=== PATIENT | female | born 1960 | race Caucasian/White ===

== ENCOUNTER → 2017-05-03 18:08 | Outpatient (CLI) | payer MEDICARE, MEDICAID ==
[~2017-05-03 18:08] MED LIST: CARAFATE1 G PO; OMEPRAZOLE40 MG PO; PROLIA INJ 660 MG/M1 IJ; TRAMADOL HCL E100 M1 PO
[2017-05-03 19:04] LABS: BASOPHILS 0.4 % (0-2); EOSINOPHILS 5.8 % (0-7); HEMATOCRIT 41.1 % (36.0-48.0); HEMOGLOBIN 13.5 g/dL (12-16); IMMATURE GRANULOCYTES 0.2 % (0-5); LYMPHOCYTES 24.4 % (15-50); MCH 30.7 pg (26.0-34.0); MCHC 32.8 g/dL (31.0-37.0); MCV 93.4 fL (80.0-100.0); MEAN PLATELET VOLUME 10.1 fL (7.4-10.4); MONOCYTES 10.8 % (2-11); NEUTROPHILS 58.4 % (40-80); PLATELET COUNT 242 10x3/uL (130-400); RDW 13.4 % (11.5-14.5)
[2017-05-03 19:18] LABS: ALBUMIN 3.5 g/dL (3.4-5.0); ALKALINE PHOSPHATASE 106 U/L (46-116); ALT (SGPT) 37 U/L (10-68); BILIRUBIN - TOTAL 0.16 mg/dL (0.2-1.3); CALC OSMOLALITY 282 mosm/kg (275-300); CALCIUM 8.7 mg/dL (8.5-10.1); CARBON DIOXIDE 30.8 mmol/L (21.0-32.0); CHLORIDE - SERUM 105 mmol/L (98-107); CREATININE - SERUM 0.8 mg/dL (0.6-1.3); GLUCOSE 73 mg/dL (74-106); POTASSIUM - SERUM 4.4 mmol/L (3.5-5.1); PROTEIN - SERUM 6.6 g/dL (6.4-8.2); SODIUM 143 mmol/L (136-145); UREA NITROGEN 9 mg/dL (7-18); eGFR NON AFRICAN AMERICAN 79 mL/min (90-120)
[2017-05-10 07:23] VITALS: BMI 16.8
== END | disposition home or self-care (01) ==
LOC: D.LABREF 18:08
PROVIDERS: Student in an Organized Health Care Education/Training Program
DX: A31.0 Pulmonary mycobacterial infection (principal); Z79.2 Long term (current) use of antibiotics

== ENCOUNTER 2017-05-10 06:49 | Day surgery (SDC) | payer MEDICARE, MEDICAID ==
[~2017-05-10] VITALS: Ht 167.6 cm; Wt 47.3 kg
--- NOTE | ~2017-05-10 | OP ---
PATIENT NAME: CARLIE BERRY MEDICAL RECORD: [id number] :64 LOCATION:D.[facility] ADMISSION DATE: SURGEON: MAIRA PIÑA MD DATE OF OPERATION: 05/10/2017 PROCEDURE: EGD with balloon dilatation EGD with biopsy. AUTOMOBILE CLUB TRAVEL COUNSELOR: Maira Piña MD. SCOPE: The scope was Olympus video gastroscope and a CRE Microvasive balloon from 45-54 Kosovan. INDICATION FOR THE PROCEDURE: The patient has a history of esophageal cancer status post radiation, chemotherapy and surgery. She had an 5 Butch-Kamran procedure with the gastric pull-through. She is presenting today with complaint of increasing gastroesophageal reflux disease as well as dysphagia. She will have an EGD with planned balloon dilatation this date. FINDINGS: Informed consent was given. The patient was made comfortable with the above medications. After reaching an adequate level of sedation by slow IV push, the patient was placed on her left side. The endoscope was then advance under direct visualization through the posterior pharyngeal area and advanced to 24 cm which is the gastroesophageal junction. The staple line was identified. The patient had some inflammation in this area. A very slight amount of heme was noted and after the inspection part of the EGD was completed, a CRE microvasive balloon was placed in this area, inflated to 54-Kosovan, held in place for 1 minute without complication. The balloon was then withdrawn. The gastric pull-through was identified. No ulcers or erosions were appreciated, inflammation was present. A biopsy was obtained. The scope was then advanced into the small bowel and at the area of the second part of the duodenum where bowel was appreciated. A few biopsies were taken of only mild inflammation. The scope was then withdrawn. IMPRESSION: 1. The patient with esophageal cancer status post an Butch-Kamran procedure with a gastric pull-through also with chemo and radiation presenting with complaint of gastroesophageal reflux disease as well as dysphagia. 2. Balloon dilatation at the gastroesophageal junction at 24 cm. The balloon was inflated to 54-Kosovan, held in place for 1 minute without complication. 3. Biopsies taken at the gastroesophageal junction, suture line identified, a slight amount of bleeding was noted prior to the balloon dilatation, and some inflammation was appreciated. No signs of ulcers or significant erosions. 4. Mild inflammation in the gastric pull-through. 5. Mild inflammation in the duodenum. PLAN: 1. Continue omeprazole. We will treat with 20 mg p.o. q.a.m. 2. Famotidine 20 mg in the morning and 40 mg at bedtime. 3. Carafate, the patient is to make this into a slurry and take 4 times a day. 4. Follow reflux precautions stringently both dietary and positional. No chocolate, tomatoes, citrus, caffeine, fatty foods, or peppermint. The patient should not eat late at night and sit up for 2 hours after every meal. She should sleep with the head of her bed elevated 5. Caution with anti-inflammatory drugs. The patient should take probiotics. OPERATIVE REPORT [id number] CARLIE BERRY JO TRANSINT:[id number] Voice Confirmation ID: [id number] DOCUMENT ID: [id number] CC: Ny Carrasco APN fax [phone] MAIRA PIÑA MD CC: CARMELITA NAVAS MD, HOWARD SAMUEL MD and Jessica GODDARD [id number] DICTATION DATE: 05/10/17941 FLIGHT OPERATIONS DISPATCH CLERK: 05/10/17 1110 [facility] 05/10/17 [id number] [place] [address]
[2017-05-10] MEDS ORDERED: OMEPRAZOLE40 MG PO (07:20)
[2017-05-10] MEDS ORDERED: CARAFATE1 G PO (07:21)
[2017-05-10] MEDS ORDERED: TRAMADOL HCL E100 M1 PO (07:21)
[2017-05-10] MEDS ORDERED: PROLIA INJ 660 MG/M1 IJ (07:22)
[2017-05-10 07:23] VITALS: BP 105/61; Ht 167.6 cm; Wt 47.3 kg
[2017-05-10 07:27] LABS: HEMATOCRIT 40.5 % (36.0-48.0); HEMOGLOBIN 13.2 g/dL (12-16); MCH 30.5 pg (26.0-34.0); MCHC 32.6 g/dL (31.0-37.0); MCV 93.5 fL (80.0-100.0); MEAN PLATELET VOLUME 9.5 fL (7.4-10.4); RBC 4.33 10x6/uL (4.00-5.40); RDW 13.4 % (11.5-14.5); WBC 5.3 10x3/uL (4.8-10.8)
--- NOTE | 2017-05-10 09:27 | NUR ---
DILATED ESOPHAGUS WITH 54 SOUTH SUDANESE X 1 MINUTE.
--- NOTE | 2017-05-10 10:42 | NUR ---
1042 DISCHARGE INSTRUCTIONS COMPLETE. NO QUESTIONS OR CONCERNS AT THIS TIME. 3 PRESCRIPTIONS GIVEN-ENCOURAGED PATIENT TO BRING CURRENT MED LIST TO DR. LEVI'S OFFICE. ESCORTED OUT BY VOLUNTEER.
== END 2017-05-10 10:43 | disposition home or self-care (01) ==
LOC: D.OPS 06:49
PROVIDERS: Surgery
DX: Z85.01 Personal history of malignant neoplasm of esophagus (principal); R11.2 Nausea with vomiting, unspecified; R13.10 Dysphagia, unspecified; K21.9 Gastro-esophageal reflux disease without esophagitis; F17.200 Nicotine dependence, unspecified, uncomplicated; J44.9 Chronic obstructive pulmonary disease, unspecified; Z01.812 Encounter for preprocedural laboratory examination

== ENCOUNTER → 2017-07-25 10:57 | Outpatient (CLI) | payer MEDICARE, MEDICAID ==
[2017-05-10 07:23] VITALS: BMI 16.8
== END | disposition home or self-care (01) ==
LOC: D.LABREF 10:57
DX: A31.0 Pulmonary mycobacterial infection (principal); Z51.81 Encounter for therapeutic drug level monitoring; Z79.2 Long term (current) use of antibiotics

== ENCOUNTER → 2017-07-25 12:35 | Outpatient (CLI) | payer MEDICARE, MEDICAID ==
[2017-05-10 07:23] VITALS: BMI 16.8
[2017-07-25 13:39] LABS: BASOPHILS 0.4 % (0-2); EOSINOPHILS 6.1 % (0-7); HEMATOCRIT 42.7 % (36.0-48.0); IMMATURE GRANULOCYTES 0.2 % (0-5); LYMPHOCYTES 20.2 % (15-50); MCHC 32.8 g/dL (31.0-37.0); MCV 94.5 fL (80.0-100.0); MEAN PLATELET VOLUME 9.9 fL (7.4-10.4); MONOCYTES 13.2 % (2-11); NEUTROPHILS 59.9 % (40-80); RBC 4.52 10x6/uL (4.00-5.40); RDW 13.4 % (11.5-14.5); WBC 5.5 10x3/uL (4.8-10.8)
[2017-07-25 13:42] LABS: PLATELET COUNT 260 10x3/uL (130-400)
[2017-07-25 14:03] LABS: ALBUMIN 3.6 g/dL (3.4-5.0); ALKALINE PHOSPHATASE 95 U/L (46-116); ALT (SGPT) 39 U/L (10-68); BILIRUBIN - TOTAL 0.19 mg/dL (0.2-1.3); CALC OSMOLALITY 275 mosm/kg (275-300); CALCIUM 8.8 mg/dL (8.5-10.1); CARBON DIOXIDE 27.8 mmol/L (21.0-32.0); CHLORIDE - SERUM 104 mmol/L (98-107); CREATININE - SERUM 0.7 mg/dL (0.6-1.3); POTASSIUM - SERUM 4.7 mmol/L (3.5-5.1); PROTEIN - SERUM 6.8 g/dL (6.4-8.2); SODIUM 140 mmol/L (136-145); UREA NITROGEN 9 mg/dL (7-18); eGFR NON AFRICAN AMERICAN > 90 mL/min (90-120)
[2017-07-25 14:06] LABS: GLUCOSE 65 mg/dL (74-106)
== END | disposition home or self-care (01) ==
LOC: D.LABREF 12:35
PROVIDERS: Student in an Organized Health Care Education/Training Program
DX: A31.0 Pulmonary mycobacterial infection (principal); Z51.81 Encounter for therapeutic drug level monitoring; Z79.2 Long term (current) use of antibiotics

== ENCOUNTER → 2018-01-30 10:23 | Outpatient (CLI) | payer MEDICARE ==
[2017-05-10 07:23] VITALS: BMI 16.8
[2018-01-30 13:18] LABS: BASOPHILS 0.3 % (0-2); HEMATOCRIT 39.6 % (36.0-48.0); HEMOGLOBIN 13.1 g/dL (12-16); IMMATURE GRANULOCYTES 0.2 % (0-5); LYMPHOCYTES 18.9 % (15-50); MCHC 33.1 g/dL (31.0-37.0); MCV 93.6 fL (80.0-100.0); MONOCYTES 12.5 % (2-11); NEUTROPHILS 62.1 % (40-80); PLATELET COUNT 204 10x3/uL (130-400); RBC 4.23 10x6/uL (4.00-5.40); RDW 13.5 % (11.5-14.5); WBC 5.9 10x3/uL (4.8-10.8)
[2018-01-30 13:32] LABS: ALBUMIN 3.6 g/dL (3.4-5.0); ALKALINE PHOSPHATASE 102 U/L (46-116); ALT (SGPT) 27 U/L (10-68); CALC OSMOLALITY 276 mosm/kg (275-300); CALCIUM 8.7 mg/dL (8.5-10.1); CARBON DIOXIDE 28.1 mmol/L (21.0-32.0); CHLORIDE - SERUM 106 mmol/L (98-107); CREATININE - SERUM 0.7 mg/dL (0.6-1.3); GLUCOSE 63 mg/dL (74-106); POTASSIUM - SERUM 4.3 mmol/L (3.5-5.1); PROTEIN - SERUM 6.5 g/dL (6.4-8.2); SODIUM 141 mmol/L (136-145); UREA NITROGEN 7 mg/dL (7-18); eGFR NON AFRICAN AMERICAN > 90 mL/min (90-120)
== END | disposition home or self-care (01) ==
LOC: D.LABREF 10:23
PROVIDERS: Student in an Organized Health Care Education/Training Program
DX: A31.0 Pulmonary mycobacterial infection (principal); Z51.81 Encounter for therapeutic drug level monitoring; Z79.2 Long term (current) use of antibiotics

== ENCOUNTER → 2018-04-03 14:31 | Outpatient (CLI) | payer MEDICARE ==
[2017-05-10 07:23] VITALS: BMI 16.8
[~2018-04-03 14:31] MED LIST changes: +LIPITOR40 MG PO; +PROAIR HFA8.5 GM INH; +ZOFRAN4 MG PO
[2018-04-03 15:00] LABS: BASOPHILS 0.2 % (0-2); EOSINOPHILS 4.7 % (0-7); HEMOGLOBIN 13.6 g/dL (12-16); IMMATURE GRANULOCYTES 0.2 % (0-5); MCHC 33.2 g/dL (31.0-37.0); MCV 93.4 fL (80.0-100.0); MONOCYTES 10.7 % (2-11); NEUTROPHILS 57.2 % (40-80); PLATELET COUNT 197 10x3/uL (130-400); RBC 4.39 10x6/uL (4.00-5.40); WBC 5.3 10x3/uL (4.8-10.8)
[2018-04-03 15:28] LABS: ALBUMIN 3.6 g/dL (3.4-5.0); ALKALINE PHOSPHATASE 97 U/L (46-116); ALT (SGPT) 35 U/L (10-68); BILIRUBIN - TOTAL 0.23 mg/dL (0.2-1.3); CALC OSMOLALITY 281 mosm/kg (275-300); CALCIUM 8.6 mg/dL (8.5-10.1); CARBON DIOXIDE 32.6 mmol/L (21.0-32.0); CHLORIDE - SERUM 104 mmol/L (98-107); CREATININE - SERUM 0.7 mg/dL (0.6-1.3); GLUCOSE 75 mg/dL (74-106); POTASSIUM - SERUM 4.5 mmol/L (3.5-5.1); PROTEIN - SERUM 6.4 g/dL (6.4-8.2); SODIUM 143 mmol/L (136-145); UREA NITROGEN 6 mg/dL (7-18); eGFR NON AFRICAN AMERICAN > 90 mL/min (90-120)
== END | disposition home or self-care (01) ==
LOC: D.LABREF 14:31
PROVIDERS: Student in an Organized Health Care Education/Training Program
DX: Z51.81 Encounter for therapeutic drug level monitoring (principal); Z79.2 Long term (current) use of antibiotics

== ENCOUNTER → 2018-04-06 12:15 | Outpatient (CLI) | payer MEDICARE ==
[2017-05-10 07:23] VITALS: BMI 16.8
== END | disposition home or self-care (01) ==
LOC: D.CT 12:15
DX: R10.9 Unspecified abdominal pain (principal)

== ENCOUNTER 2018-04-19 11:34 | Day surgery (SDC) | payer MEDICARE ==
[~2018-04-19] VITALS: Ht 167.6 cm; Wt 46.4 kg
--- NOTE | ~2018-04-19 | OP ---
PATIENT NAME: CARLIE BERRY MEDICAL RECORD: [id number] :64 LOCATION:D.[facility] ADMISSION DATE: SURGEON: MAIRA PIÑA MD DATE OF OPERATION: 04/19/2018 PROCEDURE: Colonoscopy with polypectomy. BREAKDOWN WORKER: aMira Piña MD SCOPE: Olympus video colonoscope. MEDICATIONS: Per TIVA anesthesia. The patient received 350 mg of propofol for this procedure, O2 4 liters. INDICATION FOR THE PROCEDURE: History of colon polyps, recall procedure. FINDINGS: Informed consent was given. The patient was made comfortable with the above medications. After reaching an adequate level of sedation by slow IV push, the patient was placed on her left side. The rectal exam revealed good sphincter tone. Some external skin tags were noted. No fissures or fistulas were appreciated. The colonoscope was advanced to the cecum where the ileocecal valve and appendiceal orifice were identified. The prep was fair. For this reason, some polyps could have been missed during our inspection. On withdrawal of the scope, mucosa was carefully inspected. The patient was noted to have a 0.5 cm polyp in the distal sigmoid area and this was removed with hot biopsy forceps technique. Of note, the patient had adhesions adding to the difficulty of this procedure as well as spasm, most pronounced in the left lower quadrant, likely significant for irritable bowel syndrome. On retroflexion and final withdrawal of the scope, very mild hemorrhoids were appreciated. IMPRESSION: 1. Cecum identified and photographed both the IC valve and the appendiceal orifice. 2. Fair prep. For this reason, some polyps could have been missed during our inspection. 3. Polyp in the distal sigmoid area approximately 0.5 cm in size, removed with hot biopsy forceps technique. 4. Very mild hemorrhoids. PLAN: 1. No aspirin, no anti-inflammatory drugs times 14 days. 2. High fiber diet. 3. Return to clinic on a p.r.n. basis. TRANSINT:[id number] Voice Confirmation ID: [id number] DOCUMENT ID: [id number] OPERATIVE REPORT [id number] CARLIE BERRY MAIRA PIÑA MD at 1215 CC: CARMELITA NAVAS MD, HOWARD SAMUEL FRAIS, MICHAEL A and [facility]WORK[facility],[phone] DICTATION DATE: 04/19/18 1459 MOTOR COACH BUS DRIVER: 04/19/18 1623 [facility] [place] 04/19/18 [facility] [address] [place] [address]
[~2018-04-19 11:34] MED LIST changes: -LIPITOR40 MG PO; -PROAIR HFA8.5 GM INH; -ZOFRAN4 MG PO
[2018-04-19 12:04] LABS: CALCIUM 8.3 mg/dL (8.5-10.1); CARBON DIOXIDE 30.3 mmol/L (21.0-32.0); POTASSIUM - SERUM 4.3 mmol/L (3.5-5.1)
[2018-04-19 12:09] LABS: BASOPHILS 0.4 % (0-2); EOSINOPHILS 5.5 % (0-7); HEMATOCRIT 42.1 % (36.0-48.0); HEMOGLOBIN 14.1 g/dL (12-16); IMMATURE GRANULOCYTES 0.2 % (0-5); LYMPHOCYTES 24.7 % (15-50); MCH 31.1 pg (26.0-34.0); MCHC 33.5 g/dL (31.0-37.0); MCV 92.7 fL (80.0-100.0); MEAN PLATELET VOLUME 9.6 fL (7.4-10.4); MONOCYTES 10.6 % (2-11); NEUTROPHILS 58.6 % (40-80); PLATELET COUNT 189 10x3/uL (130-400); RBC 4.54 10x6/uL (4.00-5.40); RDW 12.9 % (11.5-14.5); WBC 5.1 10x3/uL (4.8-10.8)
[2018-04-19] MEDS ORDERED: ZOFRAN4 MG PO (13:03)
[2018-04-19] MEDS ORDERED: PROAIR HFA8.5 GM INH (13:06)
[2018-04-19] MEDS ORDERED: LIPITOR40 MG PO (13:06)
[2018-04-19 13:07] VITALS: BP 96/64; Ht 167.6 cm; Wt 46.4 kg
== END 2018-04-19 15:50 | disposition home or self-care (01) ==
LOC: D.OPS 11:34
PROVIDERS: Anesthesiology
DX: Z12.11 Encounter for screening for malignant neoplasm of colon (principal); K63.5 Polyp of colon; Z86.010 Personal history of colon polyps; K64.8 Other hemorrhoids; K64.4 Residual hemorrhoidal skin tags; K58.9 Irritable bowel syndrome, unspecified; K66.0 Peritoneal adhesions (postprocedural) (postinfection); Z01.812 Encounter for preprocedural laboratory examination

== ENCOUNTER 2018-04-23 08:00 | Outpatient (CLI) | payer MEDICARE ==
[2018-04-19 13:07] VITALS: BMI 16.5
[~2018-04-23 08:00] MED LIST changes: +LIPITOR40 MG PO; +PROAIR HFA8.5 GM INH; +ZOFRAN4 MG PO
== END 2018-04-23 09:00 | disposition home or self-care (01) ==
LOC: D.MAMMO 08:00
DX: Z12.31 Encounter for screening mammogram for malignant neoplasm of breast (principal)

== ENCOUNTER → 2018-10-26 17:06 | Outpatient (CLI) | payer MEDICARE ==
[2018-04-19 13:07] VITALS: BMI 16.5
[2018-10-26 19:14] LABS: BASOPHILS 0.3 % (0-2); EOSINOPHILS 4.7 % (0-7); HEMATOCRIT 41.5 % (36.0-48.0); HEMOGLOBIN 13.3 g/dL (12-16); IMMATURE GRANULOCYTES 0.1 % (0-5); LYMPHOCYTES 21.3 % (15-50); MCV 93.7 fL (80.0-100.0); MONOCYTES 12.7 % (2-11); NEUTROPHILS 60.9 % (40-80); PLATELET COUNT 237 10x3/uL (130-400); RBC 4.43 10x6/uL (4.00-5.40); RDW 13.5 % (11.5-14.5); WBC 6.9 10x3/uL (4.8-10.8)
[2018-10-26 19:36] LABS: ALBUMIN 3.8 g/dL (3.4-5.0); ALKALINE PHOSPHATASE 107 U/L (46-116); ALT (SGPT) 31 U/L (10-68); BILIRUBIN - TOTAL 0.19 mg/dL (0.2-1.3); CALC OSMOLALITY 278 mosm/kg (275-300); CALCIUM 8.8 mg/dL (8.5-10.1); CARBON DIOXIDE 28.5 mmol/L (21.0-32.0); CHLORIDE - SERUM 103 mmol/L (98-107); CREATININE - SERUM 0.8 mg/dL (0.6-1.3); POTASSIUM - SERUM 4.4 mmol/L (3.5-5.1); PROTEIN - SERUM 6.6 g/dL (6.4-8.2); SODIUM 142 mmol/L (136-145); UREA NITROGEN 9 mg/dL (7-18); eGFR NON AFRICAN AMERICAN 78 mL/min (90-120)
[2018-10-26 19:47] LABS: GLUCOSE 50 mg/dL (74-106)
== END | disposition home or self-care (01) ==
LOC: D.LABREF 17:06
PROVIDERS: ATTEND Student in an Organized Health Care Education/Training Program
DX: Z51.81 Encounter for therapeutic drug level monitoring (principal); Z79.2 Long term (current) use of antibiotics

== ENCOUNTER → 2018-12-28 14:05 | Outpatient (CLI) | payer MEDICARE ==
[2018-04-19 13:07] VITALS: BMI 16.5
[2018-12-28 14:55] LABS: BASOPHILS 0.3 % (0-2); EOSINOPHILS 4.4 % (0-7); HEMATOCRIT 40.1 % (36.0-48.0); HEMOGLOBIN 13.4 g/dL (12-16); IMMATURE GRANULOCYTES 0.2 % (0-5); LYMPHOCYTES 23.2 % (15-50); MCH 30.7 pg (26.0-34.0); MCHC 33.4 g/dL (31.0-37.0); MCV 91.8 fL (80.0-100.0); MEAN PLATELET VOLUME 9.5 fL (7.4-10.4); MONOCYTES 12.8 % (2-11); NEUTROPHILS 59.1 % (40-80); PLATELET COUNT 219 10x3/uL (130-400); RBC 4.37 10x6/uL (4.00-5.40); RDW 14.2 % (11.5-14.5); WBC 5.9 10x3/uL (4.8-10.8)
[2018-12-28 15:19] LABS: ALBUMIN 3.6 g/dL (3.4-5.0); ALKALINE PHOSPHATASE 102 U/L (46-116); ALT (SGPT) 36 U/L (10-68); BILIRUBIN - TOTAL 0.21 mg/dL (0.2-1.3); CALC OSMOLALITY 273 mosm/kg (275-300); CALCIUM 8.6 mg/dL (8.5-10.1); CARBON DIOXIDE 27.3 mmol/L (21.0-32.0); CHLORIDE - SERUM 104 mmol/L (98-107); CREATININE - SERUM 0.8 mg/dL (0.6-1.3); POTASSIUM - SERUM 4.2 mmol/L (3.5-5.1); PROTEIN - SERUM 6.4 g/dL (6.4-8.2); SODIUM 140 mmol/L (136-145); UREA NITROGEN 8 mg/dL (7-18); eGFR NON AFRICAN AMERICAN 78 mL/min (90-120)
[2018-12-28 15:23] LABS: GLUCOSE 53 mg/dL (74-106)
== END | disposition home or self-care (01) ==
LOC: D.LABREF 14:05
PROVIDERS: ATTEND Student in an Organized Health Care Education/Training Program
DX: Z51.81 Encounter for therapeutic drug level monitoring (principal); Z79.2 Long term (current) use of antibiotics

== ENCOUNTER 2019-07-01 11:40 | Day surgery (SDC) | payer MEDICARE ==
[~2019-07-01] VITALS: Ht 167.6 cm; Wt 45.5 kg
[2019-07-01 12:33] LABS: CALC OSMOLALITY 278 mosm/kg (275-300); CALCIUM 8.9 mg/dL (8.5-10.1); CARBON DIOXIDE 32.5 mmol/L (21.0-32.0); CHLORIDE - SERUM 105 mmol/L (98-107); CREATININE - SERUM 0.8 mg/dL (0.6-1.3); GLUCOSE 95 mg/dL (74-106); POTASSIUM - SERUM 4.6 mmol/L (3.5-5.1); SODIUM 141 mmol/L (136-145); UREA NITROGEN 7 mg/dL (7-18); eGFR NON AFRICAN AMERICAN 78 mL/min (90-120)
[2019-07-01 12:34] LABS: BASOPHILS 0.4 % (0-2); EOSINOPHILS 4.8 % (0-7); HEMATOCRIT 40.1 % (36.0-48.0); HEMOGLOBIN 12.8 g/dL (12-16); IMMATURE GRANULOCYTES 0.6 % (0-5); LYMPHOCYTES 19.4 % (15-50); MCH 29.6 pg (26.0-34.0); MCHC 31.9 g/dL (31.0-37.0); MCV 92.6 fL (80.0-100.0); MEAN PLATELET VOLUME 9.1 fL (7.4-10.4); MONOCYTES 10.3 % (2-11); NEUTROPHILS 64.5 % (40-80); RBC 4.33 10x6/uL (4.00-5.40); RDW 14.3 % (11.5-14.5); WBC 7.1 10x3/uL (4.8-10.8)
[2019-07-01 12:38] LABS: PLATELET COUNT 338 10x3/uL (130-400)
[2019-07-01] MEDS ORDERED: REGLAN5 MG PO (13:23)
[2019-07-01 13:33] VITALS: BP 108/50; Ht 167.6 cm; Wt 45.5 kg
--- NOTE | 2019-07-03 07:36 | OP ---
PATIENT NAME: CARLIE BERRY MEDICAL RECORD: [id number] :64 LOCATION:D.[facility] ADMISSION DATE: SURGEON: ALICE LACEY DO DATE OF OPERATION: 07/01/2019 PROCEDURE: EGD with biopsies. INDICATIONS FOR PROCEDURE: Dysphagia, heartburn, nausea and vomiting, epigastric abdominal pain, altered bowel function. SCOPE: Olympus video gastroscope. MEDICATIONS: Propofol 180 mg IV per anesthesia. ESTIMATED BLOOD LOSS: Minimal. COMPLICATIONS: None. FINDINGS: Informed consent was given. The patient was made comfortable with the above medication. After reaching an adequate level of sedation by slow IV push, the patient was placed on her left side. The endoscope was advanced under direct visualization through the mouth to the third portion of the duodenum with ease. The very upper portion of the esophagus appeared normal. There was evidence of a prior intervention in the form of an Butch-Kamran esophagectomy with gastric pull-through with anastomotic line at approximately 24 cm from the incisors. There was some reflux changes noted at this line and a single cold forceps biopsy was taken from this site. Entire stomach showed some granularity and erythema as well as friability. There were no ulcers or other abnormalities. A couple cold forceps biopsies were taken near the antral area. The endoscope was advanced into the small bowel, which appeared normal down to the third portion of the duodenum. The endoscope was withdrawn from the patient. The patient tolerated the procedure well and there were no complications. IMPRESSION: 1. History of esophagectomy with gastric pull-through as well as chemotherapy and radiation therapy. The anastomosis is at 24 cm and appears healthy and intact. There are some reflux changes at this site and a single biopsy was taken with cold forceps. 2. Mild gastritis characterized by erythema, granularity, and friability. 3. Otherwise, normal esophagogastroduodenoscopy. PLAN AND RECOMMENDATIONS: 1. Discharge home when recovery parameters are met. 2. Follow up biopsy specimen results. 3. Continue omeprazole, but we will increase this to 40 mg daily for 30 to 60 days depending on improvement in symptoms. 4. Continue famotidine 40 mg at bedtime. 5. Continue Carafate to be used up to 4 times daily as slurry. 6. GERD diet and reflux precautions. 7. Minimize use of NSAIDs. 8. Follow up in GI clinic in 4-6 weeks. TRANSINT:[id number] Voice Confirmation ID: [id number] DOCUMENT ID: [id number] OPERATIVE REPORT [id number] CARLIE BERRY,ALICE Lopez DO at 0736 CC: [id number] DICTATION DATE: 07/01/19 1559 CREATIVE WRITING ENGLISH PROFESSOR: 07/02/19 0052 [facility] 07/01/19 [id number] [place] [id number]
== END 2019-07-01 17:00 | disposition home or self-care (01) ==
LOC: D.OPS 11:40
PROVIDERS: Anesthesiology; ATTEND Internal Medicine Gastroenterology
DX: K29.70 Gastritis, unspecified, without bleeding (principal); R13.10 Dysphagia, unspecified; R12 Heartburn; R11.2 Nausea with vomiting, unspecified; R10.13 Epigastric pain